=== PATIENT | female | born 1960 | race Caucasian/White ===

== ENCOUNTER 2022-05-26 15:23 | Outpatient (CLI) | payer OTHER, SELFPAY | END 2022-05-26 15:24 | disposition home or self-care (01) | PROVIDERS: PCP Family Medicine; Visit Provider Nurse Practitioner Family | DX: R19.7 Diarrhea, unspecified (principal) | CPT/HCPCS: 87045; 87046; 87329; 87427 ==

== ENCOUNTER 2022-09-11 14:39 | Outpatient (CLI) | payer OTHER, SELFPAY ==
[2022-09-11 10:31] LABS: Albumin* 4.1 g/dL (3.3-5.0); Chloride* 105 mmol/L (96-114); Sodium* 137 mmol/L (135-149)
[2022-09-11 10:32] LABS: Potassium* 4.5 mmol/L (3.6-5.1)
[2022-09-11 10:34] LABS: Alkaline Phosphatase* 61 U/L (40-150); Aspartate Amino Transferase* 25 U/L (12-35); Bilirubin Total* 1.3 mg/dL (0.1-1.5); Blood Urea Nitrogen* 16 mg/dL (7-30); Carbon Dioxide* 27 mmol/L (20-32); Cholesterol* 214 mg/dL (90-199); Creatinine* 0.9 mg/dL (0.5-1.5); Estimated Glomerular Filt Rate 72 ml/min; Glucose* 95 mg/dL (60-115); Total Protein* 6.7 g/dL (6.0-8.3)
[2022-09-11 10:35] LABS: Alanine Aminotransferase* 25 U/L (4-35); Calcium* 9.3 mg/dL (8.4-10.6); HDL Cholesterol* 96 mg/dL (>=50); LDL Cholesterol Calculated 108 mg/dL (<100); Triglycerides* 48 mg/dL (40-149)
== END 2022-09-11 14:40 | disposition home or self-care (01) ==
PROVIDERS: PCP Family Medicine; Visit Provider Family Medicine
DX: Z13.6 Encounter for screening for cardiovascular disorders (principal)
CPT/HCPCS: 80053; 80061